=== PATIENT | female | born 1995 | race Caucasian/White ===

== ENCOUNTER 2023-03-29 13:18 | Emergency (ER) | payer MEDICAID, SELFPAY ==
--- NOTE | 2023-03-29 13:27 | ED.FEMALEGU ---
HPI - Female Genitourinary General Chief complaint: Urogenital-Female Stated complaint: STD Time Seen by Provider: 03/29/23 13:34 Source: patient, RN notes reviewed and old records reviewed Mode of arrival: ambulatory Limitations: no limitations History of Present Illness HPI Narrative: 27-year-old female presents to the [facility] with vaginal complaints. Patient reports that she ?smells like fish down there. ? States that she felt this way when she had Trichomonas a couple years ago. Denies any abdominal pain, chest pain. Does not think she has any vaginal discharge. Denies Has had the same partner for 3 months. Related Data Home Medications Medication Instructions Recorded Confirmed lisinopril 03/29/23 Allergies Allergy/AdvReac Type Severity Reaction Status Date / Time No Known Allergies Allergy Verified 03/29/23 13:32 Review of Systems Review of Systems: All systems reviewed & are unremarkable except as noted in HPI and below Constitutional: Constitutional: Reports no additional constitutional complaints Eyes: Eyes: Reports no additional eye complaints ENT: Reports system reviewed and no additional complaints, except as documented Cardiovascular: Cardiovascular: Reports no additional cardiovascular complaints, Denies chest pain and Denies dyspnea Respiratory: Respiratory: Reports no additional respiratory complaints, Denies chest congestion, Denies cough and Denies dyspnea Gastrointestinal: Gastrointestinal: Reports no additional gastrointestinal complaints, Denies abdominal pain, Denies nausea and Denies vomiting Genitourinary: Genitourinary: Reports as per HPI, Reports vaginal discharge and Reports vaginal odor Musculoskeletal: Musculoskeletal: Reports no additional musculoskeletal complaints Integumentary/Breasts: Skin/Breast: Reports system reviewed and no additional complaints, except as docu Neurologic: Reports system reviewed and no additional complaints, except as documented Psychiatric: Psychiatric: Reports no additional psychiatric complaints Allergic/Immunologic: Allergic/Immunologic: Reports no additional allergic/immunologic complaints PMFSH Past Medical History Medical History History of high blood pressure Comments At the time of my signature, I reviewed and agree with the nursing past medical, surgical, social, and family history. There is no relevant family history pertinent to the patient complaint. Exam Const: General: cooperative, healthy appearing, comfortable, no acute distress, well developed, alert and well nourished Nutritional Appearance: well nourished Orientation/consciousness: patient oriented x3 Limitations: no limitations HENMT: Head: normal to inspection Ears: hearing grossly normal bilaterally and external ears normal Face/Nose/Sinus: Normal external nose present, Normal nares present, Normal nasal mucous membranes and turbinates present and normal facial exam Face and sinus: normal facial exam Mouth: Yes Normal oral and palatal mucosa present, Yes lip normal and Yes moist mucous membranes Throat: posterior oropharynx normal and uvula midline Eyes: General: appearance normal, both eyes and all related structures Alignment and Position: alignment normal Periorbital: periorbital findings normal Pupils: Equal, round and reactive pupils present EOM: EOMs intact bilaterally Neck: Neck: normal visual inspection, full ROM, no lymphadenopathy and no meningeal signs Chest: Chest palpation & inspection: normal inspection of the chest Resp: Effort & Inspection: normal respiratory effort and able to speak in complete sentences Auscultation: clear to auscultation bilaterally, no crackles, no rales, no rhonchi and no wheezes Cardio: Rate: regular rate Rhythm: regular rhythm GI: GI Palp: No abdominal tenderness and Yes Soft to palpation : General: Yes no CVA tenderness External Female Exam: norm
[2023-03-29 13:32] VITALS: BP 146/89; PULSE 87; RESP 16; TEMP 36.9; O2SAT 100
--- NOTE | 2023-03-29 13:32 | PC.NURSE ---
in br to obtain ua spec.
--- NOTE | 2023-03-29 14:00 | PC.NURSE ---
1353 pelvic exam done vag. cxs obained.
[2023-03-29 14:01] VITALS: BP 146/89; PULSE 87; RESP 16; TEMP 36.9; O2SAT 100
--- NOTE | 2023-03-29 15:57 | PC.NURSE ---
[facility] called and rx done via phone d/t problem with escribing per [employer].
== END 2023-03-29 14:06 | disposition home or self-care (01) ==
PROVIDERS: Emergency Provider Nurse Practitioner
DX: N76.0 Acute vaginitis (principal); Z11.3 Encounter for screening for infections with a predominantly sexual mode of transmission; I10 Essential (primary) hypertension
CPT/HCPCS: 81003; 81025; 87070; 87077; 87491; 87591; 87661; 99214; G0463